=== PATIENT | female | born 2000 | race Caucasian/White ===

== ENCOUNTER 2018-01-22 17:15 | Emergency (ER) | payer OTHER ==
[~2018-01-22] VITALS: Ht 157.5 cm; Wt 66.2 kg
[2018-01-22] MEDS ORDERED: ALLEGRA ALLERGY60 MG (17:46)
[2018-01-22] MEDS ORDERED: PROMETHAZINE W118 ML PO (20:22)
[2018-01-22] MEDS ORDERED: TESSALON PERLE100 M1 PO (20:22)
[2018-01-22] MEDS ORDERED: INTESTINEX680 M1 PO (20:22)
[2018-01-22] MEDS ORDERED: augmentin PO (20:22)
[2018-01-22] MEDS ORDERED: SINGULAIR10 MG PO (20:22)
== END 2018-01-22 20:28 | disposition home or self-care (01) ==
LOC: ER 17:15 → EDBD 17:17 → ER 20:28
DX: J06.9 Acute upper respiratory infection, unspecified (principal)